=== PATIENT | female | born 1985 | race African-American/Black ===

== ENCOUNTER 2017-07-19 10:31 | Emergency (ER) | payer OTHER ==
[~2017-07-19] VITALS: Ht 162.6 cm; Wt 162.8 kg
[2017-07-19 10:59] LABS: BILIRUBIN,URINE NEGATIVE (NEG); GLUCOSE,URINE NEGATIVE (NEG); NITRITE,URINE POSITIVE (NEG); PROTEIN,URINE NEGATIVE (NEG-TRACE); UROBILINOGEN,URINE 0.2 mg/dL (0.2 mg/dL)
[2017-07-19 11:09] LABS: BACTERIA,URINE MANY /HPF (0-FEW); RBC,URINE OCC /HPF (0-2); SQUAMOUS EPITHELIAL CELL,UR MOD /LPF
[2017-07-19] MEDS ORDERED: fentaNYL PF VIAL 100 MCG/2 ML VIAL IV ONE (11:15)
--- NOTE | 2017-07-19 11:18 | PHYS DOC ---
Past Medical History Past Medical History: No Pertinent History, Other Additional Past Medical Histor: morbid obesity Past Surgical History: Tonsillectomy Alcohol Use: Occasionally Drug Use: Marijuana Adult General Chief Complaint Chief Complaint: ABDOMINAL PAIN HPI HPI Patient is a 31 year old female who presents with abdominal pain throughout her abdomen most prominently in her epigastric and left lower quadrants for greater than 1 month. She feels like "something's moving around inside". She denies any dysuria, increased urinary frequency, no vaginal bleeding or discharge. No nausea or vomiting, no fevers, no change in bowel movement, reports normal flatus. No known sick contacts. Denies prior surgical history. Review of Systems Review of Systems Constitutional: Denies fever or chills [] Eyes: Denies change in visual acuity, redness, or eye pain [] HENT: Denies nasal congestion or sore throat [] Respiratory: Denies cough or shortness of breath [] Cardiovascular: denies chest pain GI: Per history of present illness : Denies dysuria or hematuria [] Musculoskeletal: Denies back pain or joint pain [] Integument: Denies rash or skin lesions [] Neurologic: Denies headache, focal weakness or sensory changes [] Current Medications Current Medications Current Medications Medications (Trade) Dose Ordered Sig/Perry Start Time Stop Time Status Last Admin Dose Admin Fentanyl Citrate (Fentanyl 2ml Vial) 50 mcg 1X ONCE 07/19/17 11:15 07/19/17 11:16 DC Ibuprofen (Motrin) 800 mg 1X ONCE 07/19/17 11:30 07/19/17 11:31 DC 07/19/17 11:32 800 MG Info (Do NOT chart on this entry -- for MONITORING) 1 each PRN DAILY PRN 07/19/17 12:00 07/19/17 13:16 DC Iohexol (Omnipaque 300 Mg/ml) 75 ml 1X ONCE 07/19/17 12:00 07/19/17 12:01 DC 07/19/17 12:07 75 ML Allergies Allergies Allergies Coded Allergies Type Severity Reaction Last Updated Verified No Known Drug Allergies 08/05/14 No Physical Exam Physical Exam Constitutional: Well developed, well nourished, no acute distress, non-toxic appearance. Morbidly obese HENT: Normocephalic, atraumatic, bilateral external ears normal, oropharynx moist, no oral exudates, nose normal. [] Eyes: PERRLA, EOMI, conjunctiva normal, no discharge. [] Neck: Normal range of motion, no tenderness, supple, no stridor. [] Cardiovascular:Heart rate regular rhythm, no murmur [] Lungs & Thorax: Bilateral breath sounds clear to auscultation [] Abdomen: Soft, nondistended, tenderness palpation epigastric and left lower quadrants, mild in nature, no guarding or peritoneal signs Skin: Warm, dry, no erythema, no rash. [] Back: No tenderness, no CVA tenderness. [] Extremities: No tenderness, no cyanosis, no clubbing, ROM intact, no edema. [] Neurologic: Alert and oriented X 3, normal motor function, normal sensory function, no focal deficits noted. [] Psychologic: Affect normal, judgement normal, mood normal. [] Current Patient Data Vital Signs Vital Signs Date Time Temp Pulse Resp B/P (MAP) Pulse Ox O2 Delivery O2 Flow Rate FiO2 07/19/17 12:39 68 20 163/89 (113) 97 Room Air 07/19/17 10:34 97.8 97.8 Lab Values Laboratory Tests Test 07/19/17 10:39 07/19/17 10:40 07/19/17 10:50 07/19/17 11:17 Urine Collection Type Void Urine Color Yellow Urine Clarity Clear Urine pH 6.0 Urine Specific [place] 1.020 Urine Protein Negative mg/dL (NEG-TRACE) Urine Glucose (UA) Negative mg/dL (NEG) Urine Ketones (Stick) Negative mg/dL (NEG) Urine Blood Negative (NEG) Urine Nitrite Positive (NEG) Urine Bilirubin Negative (NEG) Urine Urobilinogen Dipstick 0.2 mg/dL (0.2 mg/dL) Urine Leukocyte Esterase Negative (NEG) Urine RBC Occ /HPF (0-2) Urine WBC 1-4 /HPF (0-4) Urine Squamous Epithelial Cells Mod /LPF Urine Bacteria Many /HPF (0-FEW) Urine Mucus Slight /LPF POC Urine HCG, Qualitative Hcg negative (Negative) White Blood Count 10.5 x10^3/uL (4.0-11.0) Red Blood Count 5.21 x10^6/uL (3.50-5.40) Hemoglobin 10.6 g/dL (12.0-15.5) L Hematocrit 34.6 % (36.0-47.0) L Mean Corpuscular Volume 67 fL (79-100) L Mean Corpuscular Hemoglobin 20 pg (25-35) L Mean Corpuscular Hemoglobin Concent 31 g/dL (31-37) Red Cell Distribution Width 21.4 % (11.5-14.5) H Platelet Count 562 x10^3/uL (140-400) H Neutrophils (%) (Auto) 62 % (31-73) Lymphocytes (%) (Auto) 30 % (24-48) Monocytes (%) (Auto) 7 % (0-9) Eosinophils (%) (Auto) 2 % (0-3) Basophils (%) (Auto) 1 % (0-3) Neutrophils # (Auto) 6.5 x10^3uL (1.8-7.7) Lymphocytes # (Auto) 3.1 x10^3/uL (1.0-4.8) Monocytes # (Auto) 0.7 x10^3/uL (0.0-1.1) Eosinophils # (Auto) 0.2 x10^3/uL (0.0-0.7) Basophils # (Auto) 0.1 x10^3/uL (0.0-0.2) Platelet Estimate Increased (ADEQUATE) Hypochromasia Present Anisocytosis Present Microcytosis Present Total Bilirubin 0.3 mg/dL (0.2-1.0) Direct Bilirubin 0.1 mg/dL (0.0-0.2) Aspartate Amino Transferase (AST) 11 U/L (15-37) L Alanine Aminotransferase (ALT) 16 U/L (14-59) Alkaline Phosphatase 76 U/L (46-116) Total Protein 8.4 g/dL (6.4-8.2) H Albumin 3.4 g/dL (3.4-5.0) Lipase 64 U/L (73-393) L POC Hemoglobin 11.9 g/dL (12-15) L POC Hematocrit 35 % (36-40) L POC Sodium 140 mmol/L (135-145) POC Potassium 3.9 mmol/L (3.5-5.0) POC Chloride 106 mmol/L (98-110) POC Total CO2 27 mmol/L (23-32) Anion Gap 11 mmol/L (6-14) POC Blood Urea Nitrogen 8 mg/dL (8-26) POC Creatinine 0.7 mg/dL (0.5-1.4) Glucose Level 98 mg/dL (70-99) POC Ionized Calcium ([place]) 1.17 mmol/L (1.13-1.32) Laboratory Tests 07/19/17 10:50 Laboratory Tests 07/19/17 11:17 EKG EKG [] Radiology/Procedures Radiology/Procedures CT abd/pelvis: IMPRESSION: No acute abdominal or pelvic abnormality is detected. [] Course & Med Decision Making Course & Med Decision Making Pertinent Labs and Imaging studies reviewed. (See chart for details) []She was given IV toradol, labs and urinalysis obtained. Mild UTI, CT abd/pelvis neg. DC'd with abx, referral sheet, return precautions. Pain well controlled. Dragon Disclaimer Dragon Disclaimer This electronic medical record was generated, in whole or in part, using a voice recognition dictation system. Departure Departure Impression: Primary Impression: UTI (urinary tract infection) Disposition: HOME, SELF-CARE Condition: IMPROVED Referrals: NO PCP (PCP) Scripts Ciprofloxacin Hcl (CIPRO) 250 Mg Tablet 1 TAB PO BID, #6 TAB Prov: JEREMY WALKER MD 07/19/17 JEREMY WALKER MD Jul 19, 2017 11:18
[2017-07-19 11:22] LABS: POTASSIUM ISTAT 3.9 mmol/L (3.5-5.0)
[2017-07-19 11:23] LABS: BASO # 0.1 x10^3/uL (0.0-0.2); BASO % 1 % (0-3); EOS % 2 % (0-3); HEMATOCRIT 34.6 % (36.0-47.0); HEMOGLOBIN 10.6 g/dL (12.0-15.5); LYMPH # 3.1 x10^3/uL (1.0-4.8); LYMPH % 30 % (24-48); MEAN CORPUSCULAR HEMOGLOBIN 20 pg (25-35); MEAN CORPUSCULAR HGB CONC 31 g/dL (31-37); MEAN CORPUSCULAR VOLUME 67 fL (79-100); MONO % 7 % (0-9); NEUT % 62 % (31-73); PLATELET COUNT 562 x10^3/uL (140-400); RED BLOOD COUNT 5.21 x10^6/uL (3.50-5.40); RED CELL DISTRIBUTION WIDTH 21.4 % (11.5-14.5); WHITE BLOOD COUNT 10.5 x10^3/uL (4.0-11.0)
[2017-07-19] MEDS ORDERED: IBUPROFEN 800 MG TABLET. PO ONE (11:30)
[2017-07-19 11:35] LABS: ALBUMIN 3.4 g/dL (3.4-5.0); DIRECT BILIRUBIN 0.1 mg/dL (0.0-0.2); TOTAL BILIRUBIN 0.3 mg/dL (0.2-1.0); TOTAL PROTEIN 8.4 g/dL (6.4-8.2)
[2017-07-19] MEDS ORDERED: CONTRAST GIVEN MC PRN (12:00)
[2017-07-19] MEDS ORDERED: IOHEXOL 300 MG/ML 100ML VIAL. IV ONE (12:00)
[2017-07-19 12:39] VITALS: BP 163/89
--- NOTE | 2017-07-19 12:49 | RAD ---
CT of the abdomen and pelvis with contrast, 07/19/2017: History: Abdominal pain, nausea and vomiting Multidetector CT imaging was performed following an IV bolus injection of iodinated contrast material. No oral contrast material was administered for this study. The images are compromised by artifacts related to the patient's size. The liver is at the upper limits of normal in size. There is no evidence of a hepatic mass or bile duct dilatation. No gallbladder abnormality is seen. The pancreas is unremarkable. The spleen is within normal limits in size. No renal or adrenal abnormality is detected. No abdominal or pelvic adenopathy is detected. The uterus and ovaries are unremarkable. The bowel loops are not dilated. The appendix is unremarkable. No free air or free fluid is evident in the abdomen or pelvis. IMPRESSION: No acute abdominal or pelvic abnormality is detected. PQRS Compliance Statement: One or more of the following individualized dose reduction techniques were utilized for this examination: 1. Automated exposure control 2. Adjustment of the mA and/or kV according to patient size 3. Use of iterative reconstruction technique
[2017-07-19 12:53] LABS: ANISOCYTOSIS PRESENT; HYPOCHROMIA PRESENT; MICROCYTOSIS PRESENT; PLT ESTIMATE INCREASED (ADEQUATE)
[2017-07-19] MEDS ORDERED: CIPR250T30 PO (12:58)
[2017-07-20] MEDS ORDERED: PIP/TAZO PER PHARMACY MC PRN (07:30)
[2017-07-20] MEDS ORDERED: VANCOMYCIN 2 GM in IV DEXTROSE 5 %-0.2 % NACL 500 ML IV ONE (07:30)
[2017-07-20] MEDS ORDERED: levOFLOXacin PER PHARMACY. MC PRN (07:30)
[2017-07-20] MEDS ORDERED: VANCOMYCIN PER PHARMACY MC PRN (07:30)
[2017-07-20] MEDS ORDERED: PIPERACILLIN/TAZO IV Push 4.5 GM VIAL. IVP ONE (07:45)
[2017-07-20] MEDS ORDERED: VANCOMYCIN 2 GM in IV DEXTROSE 5 %-0.45 % NACL 500 ML IV ONE (07:51)
== END 2017-07-19 13:00 | disposition home or self-care (01) ==
LOC: ER 10:31
DX: N39.0 Urinary tract infection, site not specified (principal); R10.13 Epigastric pain; E66.01 Morbid (severe) obesity due to excess calories; F12.10 Cannabis abuse, uncomplicated; Z68.44 Body mass index [BMI] 60.0-69.9, adult
CPT/HCPCS: 36415; 74177; 80047; 80076; 81001; 81025; 83690; 85025; 87086; 87186; 99285; Q9967